=== PATIENT | male | born 1980 | race Native Hawaiian/Other Pacific Islander ===

== ENCOUNTER 2022-12-13 11:13 | Emergency (ER) | payer OTHER ==
[~2022-12-13] VITALS: Ht 170.2 cm; Wt 95.3 kg
[2022-12-13 11:18] VITALS: BP 134/73; TEMP 97.2
== END 2022-12-13 13:44 | disposition home or self-care (01) ==
LOC: ED 11:13
PROC: 0HQGXZZ Repair Left Hand Skin, External Approach (ICD-10-PCS; principal; 2022-12-13)
PROC: 2W3HX1Z Immobilization of Left Thumb using Splint (ICD-10-PCS; 2022-12-13)
DX: S61.022A Laceration with foreign body of left thumb without damage to nail, initial encounter (principal); W01.198A Fall on same level from slipping, tripping and stumbling with subsequent striking against other object, initial encounter; Y92.89 Other specified places as the place of occurrence of the external cause
CPT/HCPCS: 99283; J7040